=== PATIENT | female | born 1960 | race American Indian/Alaskan Native ===

== ENCOUNTER 2020-04-04 16:08 | Inpatient (IN) | payer BC ==
[2020-04-04] MEDS ORDERED: HEPARIN 1,000 UNIT/1 ML VIAL IV ONE (16:44)
[2020-04-04] MEDS ORDERED: SODIUM CHLORIDE 0.9% 1000 ML 1,000 ML IV ONE (16:44)
[2020-04-04] MEDS ORDERED: ASPIRIN 81 MG TAB CHEW PO ONE (16:44)
--- NOTE | 2020-04-04 16:53 | Emergency Department Report ---
ED Chest Pain HPI - General Chief Complaint: Chest Pain Stated Complaint: CHEST PAIN Time Seen by Provider: 04/04/20 16:36 Source: patient Mode of arrival: Ambulatory Limitations: No Limitations - History of Present Illness Initial Comments: Mrs. Brown is a 59-year-old female with history of hypertension, prediabetes mellitus, tobacco use, lung cancer in remission, brain aneurysm status post clipping and coiling who presents with sudden onset of chest pain 1 hour prior to arrival. Pain is sharp achy center of the chest radiating to both arms. She has mild shortness of breath. No previous history of heart disease. Pain is 5 out of 10 persistent. Extensive family history of heart disease including mother who underwent cardiac stenting and CABG. MD Complaint: chest pain -: Sudden, hour(s) (1) Onset: during rest, during exertion Pain Location: substernal Pain Radiation: RUE, LUE Severity: moderate Severity scale (0 -10): 5 Quality: aching, sharp Consistency: constant Improves With: nothing Worsens With: exertion re: dyspnea - Related Data Home Medications Medication Instructions Recorded Confirmed Last Taken Cyclobenzaprine [Flexeril] 10 mg PO TID PRN 10/06/15 10/06/15 10/06/15 Losartan [Cozaar] 50 mg PO QDAY 10/06/15 10/06/15 10/06/15 traMADoL [Ultram] 50 mg PO Q6HR PRN 10/06/15 10/06/15 10/06/15 Allergies Allergy/AdvReac Type Severity Reaction Status Date / Time No Known Allergies Allergy Verified 10/06/15 14:36 Heart Score - HEART Score History: Highly suspicious EKG: Significant ST-depression Age: 45-65 Risk factors: 1-2 risk factors Troponin: < normal limit HEART Score: 6 ED Review of Systems ROS: Stated complaint: CHEST PAIN Other details as noted in HPI Comment: All other systems reviewed and negative Constitutional: denies: fever, malaise Respiratory: shortness of breath. denies: cough Cardiovascular: chest pain ED Past Medical Hx - Past Medical History Previous Medical History?: Yes Hx Hypertension: Yes Additional medical history: LUNG/BREAST CA METS-CHEMO/RADIATION [id number] - Surgical History Past Surgical History?: Yes Additional Surgical History: brain surgery. aneursyms with clamps,LEFT BREAST LUMPECTOMY, PARTIAL LEFT LUNG REMOVED - Family History Family history: CAD/IN - Social History Smoking Status: Current Every Day Smoker Substance Use Type: Alcohol - Medications Home Medications: Home Medications Medication Instructions Recorded Confirmed Last Taken Type Cyclobenzaprine [Flexeril] 10 mg PO TID PRN 10/06/15 10/06/15 10/06/15 History Losartan [Cozaar] 50 mg PO QDAY 10/06/15 10/06/15 10/06/15 History traMADoL [Ultram] 50 mg PO Q6HR PRN 10/06/15 10/06/15 10/06/15 History ED Physical Exam - General Limitations: No Limitations General appearance: alert, in no apparent distress, other (Equal radial pulses) - Head Head exam: Present: atraumatic, normocephalic - Eye Eye exam: Present: normal appearance - ENT ENT exam: Present: mucous membranes moist - Neck Neck exam: Present: normal inspection, full ROM - Respiratory Respiratory exam: Present: normal lung sounds bilaterally. Absent: respiratory distress, wheezes, rales, rhonchi - Cardiovascular Cardiovascular Exam: Present: regular rate, normal rhythm, normal heart sounds. Absent: systolic murmur, diastolic murmur, rubs, gallop - GI/Abdominal GI/Abdominal exam: Present: soft, normal bowel sounds - Extremities Exam Extremities exam: Present: normal inspection - Back Exam Back exam: Present: normal inspection - Neurological Exam Neurological exam: Present: alert, oriented X3 - Psychiatric Psychiatric exam: Present: normal affect, normal mood - Skin Skin exam: Present: warm, dry, intact, normal color. Absent: rash ED Course Vital Signs 04/04/20 16:26 Temperature 98.5 F Pulse Rate 77 Respiratory 18 Rate Blood Pressure 203/101 O2 Sat by Pulse 100 Oximetry LARISSA score - Larissa Score Age > 65: (0) No Aspirin use within the Past 7 Days: (0) No 3 or more CAD Risk Factors: (1) Yes 2 or more Angina events in past 24 hrs: (1) Yes Known CAD with more than 50% Stenosis: (0) No Elevated Cardiac Markers: (0) No ST Deviation Greater than 0.5mm: (0) No LARISSA Score: 2 ED Medical Decision Making - EKG Data 04/04/20 16:50 EKG obtained 1620 NSR 70 bpm nl axis normal intervals ST elevation III AVF reciprocal depressions in anterior leads, EKG is changed from 10/2015 - Medical Decision Making I was present EKG which had concerning ST morphology in the inferior leads with reciprocal changes in the anterior leads. I immediately spoke with interventional list Dr. Davis who agreed that the patient needed to be taken emergently to the cardiac Radar [facility]ic. Code STEMI activated. Patient was treated with aspirin and heparin bolus prior to leaving the department. Critical care attestation.: If time is entered above; I have spent that time in minutes in the direct care of this critically ill patient, excluding procedure time. ED Disposition Clinical Impression: Acute ST elevation myocardial infarction (STEMI) of inferior wall Disposition: [id number] OP ADMIT IP TO THIS HOSP Is pt being admited?: Yes Does the pt Need Aspirin: No Condition: Stable
[2020-04-04] MEDS ORDERED: HEPARIN 10,000 UNITS/10 ML VIAL IV ONE (17:00)
[2020-04-04 17:06] LABS: Basophils % (Auto) 0.6 % (0.0-1.8); Eosinophils % (Auto) 0.8 % (0.0-4.3); Hematocrit 41.6 % (30.3-42.9); Lymphocytes # (Auto) 1.1 K/mm3 (1.2-5.4); Lymphocytes % (Auto) 19.2 % (13.4-35.0); Mean Corpuscular HGB Conc 34 % (30-34); Mean Corpuscular Volume 97 fl (79-97); Monocytes # (Auto) 0.3 K/mm3 (0.0-0.8); Monocytes % (Auto) 5.6 % (0.0-7.3); Platelet Count 250 K/mm3 (140-440); Red Blood Count 4.31 M/mm3 (3.65-5.03)
[2020-04-04] MEDS ORDERED: HEPARIN/NS 5000 UNIT/500ML 1,000 ML IR ONE (17:09)
[2020-04-04] MEDS ORDERED: VERAPAMIL 5 MG/2 ML INJ ONE (17:09)
[2020-04-04] MEDS ORDERED: NITROGLYCERIN SYRINGE 3 ML ONE (17:10)
--- NOTE | 2020-04-04 17:11 | XRay Report ---
CHEST 1 VIEW INDICATION / CLINICAL INFORMATION: chest pain. COMPARISON: None available. FINDINGS: SUPPORT DEVICES: None. HEART / MEDIASTINUM: No significant abnormality. LUNGS / PLEURA: No significant pulmonary or pleural abnormality. No pneumothorax. ADDITIONAL FINDINGS: No significant additional findings. IMPRESSION: 1. No acute findings. Signer Name: Rich Oneal MD Signed: 04/04/2020 5:07 PM Workstation Name: [id number]
--- NOTE | 2020-04-04 17:13 | History and Physical Report ---
History of Present Illness Chief complaint: My chest hurts History of present illness: 59 YO Female with HTN, [place], CAD, Lung/Breast Cancer S/P Chemo/Radiation Therapy, Nicotine Dependence, ETOH presents to ED for evaluation. Pt states that she has experienced sudden onset pain in her chest. Patient states that the pain began approximately 1 hour prior to arrival. Patient states that pain is 57/10, constant, crushing in nature, substernal, associated with shortness of breath, associated with diaphoresis. Patient transported to [facility] via private vehicle for further care and evaluation. Patient seen and evaluated in the emergency department. Lab and imaging studies reviewed. Patient underwent EKG which showed ST elevation consistent with ST elevation OH. Cardiology team consulted. Patient taken urgently to cardiac catheterization lab for surgical intervention. Patient admitted to ICU for further care due to increased risk of cardiac decompensation. Patient denies fever, chills, palpitations, productive cough, skin rash, recent ill contacts, known exposure to COVID-19. Advanced care planning conducted in ED. no prior admission for review. At the time of admission has been reconciled. Past History Past Medical History: acute [place], cancer, diabetes, hypertension, other (See HPI) Past Surgical History: Other ( brain surgery. aneursyms with clamps,LEFT BREAST LUMPECTOMY, PARTIAL LEFT LUNG REMOVED) Social history: , smoking Family history: diabetes, hypertension Medications and Allergies Allergies Allergy/AdvReac Type Severity Reaction Status Date / Time hydralazine Allergy Unknown Verified 04/04/20 18:18 morphine Allergy Unknown Verified 04/04/20 18:18 Home Medications Medication Instructions Recorded Confirmed Last Taken Type Cyclobenzaprine [Flexeril] 10 mg PO TID PRN 10/06/15 10/06/15 10/06/15 History Losartan [Cozaar] 50 mg PO QDAY 10/06/15 10/06/15 10/06/15 History traMADoL [Ultram] 50 mg PO Q6HR PRN 10/06/15 10/06/15 10/06/15 History Active Meds: Active Medications Sodium Chloride (Nacl 0.9% 1000 Ml) 1,000 mls @ 42 mls/hr IV ONCE ONE Stop: 04/05/20 16:32 Sodium Chloride (Sodium Chloride Flush Syringe 10 Ml) 10 ml IV BID ADALI Sodium Chloride (Sodium Chloride Flush Syringe 10 Ml) 10 ml IV PRN PRN PRN Reason: LINE FLUSH Review of Systems Constitutional: no weight loss, no weight gain, no fever, no chills Ears, nose, mouth and throat: no ear pain, no ear discharge, no nasal discharge Cardiovascular: chest pain, decreased exercise tolerance, no rapid/irregular heart beat, no edema, no syncope Respiratory: no cough, no cough with sputum, no hemoptysis, no shortness of breath Gastrointestinal: no nausea, no vomiting Genitourinary Female: no pelvic pain, no flank pain, no urinary frequency Rectal: no pain, no incontinence, no bleeding Musculoskeletal: no neck stiffness, no neck pain, no shooting arm pain, no arm numbness/tingling, no low back pain Integumentary: no rash, no pruritis, no redness, no sores, no wounds Neurological: no paralysis, no weakness, no parathesias, no numbness, no tingling, no seizures, no syncope Psychiatric: no anxiety, no memory loss, no change in sleep habits, no insomnia, no hypersomnia, no change in appetite, no hallucinations Endocrine: no cold intolerance, no heat intolerance, no polyphagia, no excessive thirst, no polyuria, no excessive sweating, no flushing Hematologic/Lymphatic: no easy bruising, no easy bleeding, no lymphadenopathy Allergic/Immunologic: no persistent infections, no anaphylaxis, no angioedema Exam - Constitutional Vitals: Temp Pulse Resp BP Pulse Ox 98.5 F 77 18 203/101 100 04/04/20 16:26 04/04/20 16:26 04/04/20 16:26 04/04/20 16:26 04/04/20 16:26 General appearance: Present: no acute distress, well-nourished - EENT Eyes: Present: PERRL ENT: hearing intact, clear oral mucosa - Neck Neck: Present: supple, normal ROM - Respiratory Respiratory effort: normal Respiratory: bilateral: CTA - Cardiovascular Heart Sounds: Present: S1 & S2. Absent: rub, click - Extremities Extremities: pulses symmetrical, No edema Peripheral Pulses: within normal limits - Abdominal General gastrointestinal: Present: soft, non-tender, non-distended, normal bowel sounds Female genitourinary: Present: normal - Integumentary Integumentary: Present: clear, warm, dry - Musculoskeletal Musculoskeletal: gait normal, strength equal bilaterally - Psychiatric Psychiatric: appropriate mood/affect, intact judgment & insight - Neurologic Neurologic: CNII-XII intact, moves all extremities HEART Score - HEART Score EKG: Significant ST-depression Age: 45-65 Risk factors: 1-2 risk factors Troponin: < normal limit Results - Labs CBC & Chem 7: 04/04/20 16:50 04/04/20 16:50 Labs: Abnormal lab results 04/04/20 Range/Units 16:50 MCH 33 H (28-32) pg Lymph # 1.1 L (1.2-5.4) K/mm3 Seg Neutrophils % 73.8 H (40.0-70.0) % Assessment and Plan - Patient Problems (1) Acute ST elevation myocardial infarction (STEMI) of inferior wall Current Visit: No Status: Acute Plan to address problem: Cardiology team consulted in ED, patient taken urgently to [facility] for cardiac intervention, lipid panel, statin therapy as clinically indicated, therapeutic anticoagulation with heparin drip. The high probability of a clinically significant, sudden or life threatening deterioration of the [cardiac, pulmonary, renal] system(s) required my full and direct attention, intervention and personal management. The aggregate critical care time was [95] minutes. This time is in addition to time spent performing reported procedures but includes the following: [x] Data Review and interpretation [x] Patient assessment and monitoring of vital signs [x] Documentation [x] Medication orders and management (2) Diastolic CHF Current Visit: Yes Status: Acute Qualifiers: Heart failure chronicity: acute Qualified Code(s): I50.31 - Acute diastolic (congestive) heart failure Plan to address problem: Strict I's/O, daily weight, monitor urine output every shift, supplemental oxygen, echocardiogram, afterload reduction, supportive care., Blood pressure control. (3) HTN (hypertension) Current Visit: Yes Status: Acute Qualifiers: Hypertension type: essential hypertension Qualified Code(s): I10 - Essential (primary) hypertension Plan to address problem: Monitor blood pressure every shift, continue prehospital antihypertensive therapy. (4) CAD (coronary artery disease) Current Visit: Yes Status: Acute Qualifiers: Associated angina: with stable angina Plan to address problem: Risk factor reduction therapy, lipid panel, statin therapy, (5) Nicotine dependence Current Visit: Yes Status: Acute Qualifiers: Nicotine product type: cigarettes Substance use status: in withdrawal Qualified Code(s): F17.213 - Nicotine dependence, cigarettes, with withdrawal Plan to address problem: Smoking cessation counseling, supportive care, +15 minutes. (6) DVT prophylaxis Current Visit: Yes Status: Acute Plan to address problem: SCD to bilateral lower extremities while in bed, continue heparin drip. (7) Lung cancer Current Visit: Yes Status: Acute Qualifiers: Lung location: unspecified part of lung Plan to address problem: Outpatient oncology follow-up, patient is currently in remission. (8) Advance care planning Current Visit: Yes Status: Acute Plan to address problem: Disease education conducted, patient is full code, patient knowledges understanding and agreement with care plan, +30 minutes.
[2020-04-04 17:16] LABS: INR 0.9 (0.87-1.13)
[2020-04-04 17:17] LABS: Partial Thromboplastin Time 26.7 Sec. (24.2-36.6)
[2020-04-04 17:22] LABS: Creatine Kinase MB 1.1 ng/mL (0.0-4.0)
[2020-04-04 17:23] LABS: BUN/Creatinine Ratio 17; Blood Urea Nitrogen 12 mg/dL (7-17); Calcium 9.4 mg/dL (8.4-10.2); Hemolysis Index 16
[2020-04-04] MEDS: fentaNYL 100 MCG/2 ML INJ ONE ×3 (17:30→17:48)
[2020-04-04] MEDS: LIDOCAINE (2%) 20 MG/1 ML VIAL 20 ML MDV INFILTRATI ONE ×3 (17:30→17:46)
[2020-04-04] MEDS: MIDAZOLAM 2 MG/2 ML INJ ONE ×3 (17:30→17:48)
[2020-04-04] MEDS: HEPARIN 10,000 UNITS/10 ML VIAL ONE ×2 (17:59→19:15)
[2020-04-04] MEDS ORDERED: ONDANSETRON 4 MG/2 ML INJ ONE (18:23)
[2020-04-04] MEDS ORDERED: NITROGLYCERIN DRIP 50 MG/250 ML BOTTLE ONE (18:41)
[2020-04-04] MEDS ORDERED: HEPARIN/NS 5000 UNIT/500ML 500 ML IR ONE (18:43)
[2020-04-04] MEDS: NITROGLYCERIN SYRINGE 3 ML ONE ×2 (18:51→18:58)
[2020-04-04] MEDS ORDERED: NIFEdipine XL 60 MG TAB PO ONE (18:57)
[2020-04-04] MEDS ORDERED: CLOPIDOGREL 300 MG TAB ONE (19:04)
[2020-04-04] MEDS ORDERED: ALUM-MAG HYDROXIDE-SIMETHICONE 200-200-20MG/5ML ORAL LIQD 30 ML ONE (19:04)
[2020-04-04] MEDS ORDERED: TIROFIBAN/NS 12,500 MCG/250 ML BAG IV ONE (19:04)
[2020-04-04] MEDS ORDERED: NITROGLYCERIN DRIP 50 MG/250 ML BOTTLE IV ONE (19:32)
--- NOTE | 2020-04-04 19:43 | Consultation ---
History of Present Illness Consult date: 04/04/20 Consult reason: chest pain History of present illness: The patient is a 59-year-old woman who presented to the hospital with several hours of chest pain. EKG was consistent with an acute inferior wall ST elevation myocardial infarction. Cardiac catheterization STEMI protocol was activated, and we found distal occlusion of the circumflex artery. Successful coronary angioplasty was performed after initial difficulty with transitioning a guidewire in the tortuous circumflex system. Serial 2.0-2.25 mm drug-eluting stents were deployed with excellent angiographic result. Left ventricular ejection fraction was 40 to 45% by left ventricular angiography. The patient is admitted to the CCU for post [facility] supportive care. Comorbidities include recent history of breast and lung cancer, chronic hypertension and a remote history of cerebral aneurysm clipping in 1986. Past History Past Medical History: acute [place], cancer, diabetes, hypertension Past Surgical History: Other ( brain surgery. aneursyms with clamps,LEFT BREAST LUMPECTOMY, PARTIAL LEFT LUNG REMOVED) Social history: , smoking Family history: diabetes, hypertension Medications and Allergies Allergies Allergy/AdvReac Type Severity Reaction Status Date / Time hydralazine Allergy Unknown Verified 04/04/20 18:18 morphine Allergy Unknown Verified 04/04/20 18:18 Home Medications Medication Instructions Recorded Confirmed Last Taken Type Cyclobenzaprine [Flexeril] 10 mg PO TID PRN 10/06/15 10/06/15 10/06/15 History Losartan [Cozaar] 50 mg PO QDAY 10/06/15 10/06/15 10/06/15 History traMADoL [Ultram] 50 mg PO Q6HR PRN 10/06/15 10/06/15 10/06/15 History Active Meds: Active Medications Aspirin (Ecotrin) 325 mg PO QDAY ADALI Clopidogrel Bisulfate (Plavix) 75 mg PO QDAY [facility] Sodium Chloride (Nacl 0.9% 1000 Ml) 1,000 mls @ 100 mls/hr IV DIRECT [facility] Stop: 04/05/20 07:44 Metoprolol Tartrate (Metoprolol) 50 mg PO BID [facility] Sodium Chloride (Sodium Chloride Flush Syringe 10 Ml) 10 ml IV BID ADALI Sodium Chloride (Sodium Chloride Flush Syringe 10 Ml) 10 ml IV PRN PRN PRN Reason: LINE FLUSH Review of Systems Cardiovascular: chest pain, shortness of breath, no orthopnea, no palpitations, no rapid/irregular heart beat, no edema, no syncope, no lightheadedness Physical Examination Vital Signs Temp Pulse Resp BP Pulse Ox 98.5 F 77 18 203/101 100 04/04/20 16:26 04/04/20 16:26 04/04/20 16:26 04/04/20 16:26 04/04/20 16:26 General appearance: no acute distress HEENT: Positive: PERRL Neck: Positive: neck supple Cardiac: Positive: Reg Rate and Rhythm Lungs: Positive: clear to auscultation Neuro: Positive: Grossly Intact Abdomen: Positive: Soft Female genitourinary: deferred Skin: Positive: Clear Extremities: Absent: edema Results 04/04/20 16:50 04/04/20 16:50 Cardiac Enzymes 04/04/20 Range/Units 16:50 CK-MB (CK-2) 1.1 (0.0-4.0) ng/mL Coagulation 04/04/20 Range/Units 16:50 PT 12.3 (12.2-14.9) Sec. INR 0.90 (0.87-1.13) APTT 26.7 (24.2-36.6) Sec. CBC 04/04/20 Range/Units 16:50 WBC 5.6 (4.5-11.0) K/mm3 RBC 4.31 (3.65-5.03) M/mm3 Hgb 14.0 (10.1-14.3) gm/dl Hct 41.6 (30.3-42.9) % Plt Count 250 (140-440) K/mm3 Lymph # 1.1 L (1.2-5.4) K/mm3 [place] # 0.3 (0.0-0.8) K/mm3 Eos # 0.0 (0.0-0.4) K/mm3 Baso # 0.0 (0.0-0.1) K/mm3 Comprehensive Metabolic Panel 04/04/20 Range/Units 16:50 Sodium 140 (137-145) mmol/L Potassium 4.0 (3.6-5.0) mmol/L Chloride 104.6 (98-107) mmol/L Carbon Dioxide 22 (22-30) mmol/L BUN 12 (7-17) mg/dL Creatinine 0.7 (0.7-1.2) mg/dL Glucose 174 H (65-100) mg/dL Calcium 9.4 (8.4-10.2) mg/dL EKG interpretations - Telemetry EKG Rhythm: Sinus Rhythm (With inferior STEMI) Assessment and Plan - Patient Problems (1) Acute ST elevation myocardial infarction (STEMI) of inferior wall Current Visit: No Status: Acute Plan to address problem: Status post cardiac catheterization with successful angioplasty and stenting of distal circumflex occlusion. Left ventricular ejection fraction 40 to 45%. There was moderate severity nonobstructive disease of the mid right coronary artery, recommended for conservative management. Patient is admitted to the CCU on supportive management and guideline directed medical therapy.
[2020-04-04] MEDS ORDERED: SODIUM CHLORIDE 0.9% 1000 ML 1,000 ML IV SCH (19:45)
--- NOTE | 2020-04-04 19:47 | Cardiac Catherization Report ---
CARDIAC CATHETERIZATION AND CORONARY ANGIOPLASTY REPORT. REASON FOR PROCEDURE: The patient is a 59-year-old woman who presented to the hospital with chest pain, ECG consistent with an acute inferior ST elevation myocardial infarction. Emergency cardiac catheterization protocol was activated. PROCEDURES: 1. Left heart catheterization. 2. Selective left and right coronary angiography. 3. Left ventricular angiography. 4. Coronary angioplasty and stenting of the circumflex artery. 5. Sedation time start 1743, end 1859. The laboratory miller was activated at 1640 and the procedure was begun promptly with 1743. Due to severe tortuosity and an acute bend at the ostium of the circumflex, wire transition into the circumflex was difficult, requiring many maneuvers including an [id number] balloon and an exchange of several guidewires. This difficult and tortuous anatomy resulted in a delay to balloon inflation. PROCEDURES: The patient was prepped and draped in a sterile fashion under emergency protocol. The right femoral artery was entered using the Seldinger technique followed by placement of a 6-Andorran sheath. Selective left and right coronary angiography was performed using #4 left and right Nuno catheters. The right Nuno was used for left ventricle angiography. The angiograms were reviewed. FINDINGS: The left main coronary artery contained mild distal narrowing. The left anterior descending artery and its diagonal branches were free of significant disease. A large ramus intermedius artery contained mild irregularities. The first obtuse marginal branch of the circumflex was a large vessel that was free of significant disease. The AV groove circumflex continued, and gave off another, medium sized mid obtuse marginal. Beyond the mid obtuse marginal, the circumflex was occluded in its distal segment. The right coronary artery was relatively small caliber, but dominant vessel. There was mild disease of the proximal segment. There was another, focal 50-60% stenosis of the mid segment. There was [id number] left ventricular systolic dysfunction with left ventricular ejection fraction 40-45%. CORONARY ANGIOPLASTY: After review of the angiograms, the distal occlusion of the circumflex was the likely infarct-related lesion. We commenced with coronary intervention. We selected an XB 3.5 guiding catheter and advanced to the left coronary ostium. As noted above, due to severe tortuosity and an acute bend at the origin of the circumflex, wire to transition to the distal vessel proved very challenging requiring multiple balloon and wire manipulations. Ultimately, we were successful in transitioning a ChoICE PT wire into the distal circumflex. Following that, balloon angioplasty was carried out to an occlusive lesion in the distal vessel leading to a small to medium sized terminal obtuse marginal. Following balloon angioplasty, there remained a severely irregular lesion, and this prompted a decision for stent deployment. We deployed serial 2.0-2.25 mm drug-eluting stents, covering the lesional segment. Following stenting, there was an excellent angiographic result at the treated site, 0 residual stenosis and spiritism of LARISSA 3 flow. The patient tolerated the procedure well and there were no complications. CONCLUSION: 1. Acute inferior wall ST elevation myocardial infarction. 2. 100% occlusion of the distal circumflex is the infarct-related lesion. 3. Successful primary angioplasty and stenting of the distal circumflex with excellent angiographic result after deployment of a 2.0-2.25 mm drug-eluting stents. 4. Coronary intervention was made difficult by the severe tortuosity and an acute bend leading into the circumflex, causing a delay in initial device delivery to the lesional segment. 5. Nonobstructive disease of the mid right coronary artery is recommended for risk factor modification and medical therapy. 6. Tccu-an-cabgwefr left ventricular dysfunction, ejection fraction 40-45%. JOB# [id number] ANSHU/NTS
[2020-04-04] MEDS ORDERED: TIROFIBAN/NS 12,500 MCG/250 ML BAG IV SCH (20:00)
[2020-04-04 20:52] LABS: Chol/HDL Ratio 3.81 %
[2020-04-04] MEDS ORDERED: LORazepam 2 MG/ML VIAL IV PRN (20:57)
[2020-04-04] MEDS: LOSARTAN 50 MG TAB PO SCH (21:13)
[2020-04-04] MEDS: PANTOPRAZOLE 40 MG TAB PO SCH (21:21)
[2020-04-04] MEDS: METOPROLOL TARTRATE 50 MG TAB PO SCH (21:23)
[2020-04-04] MEDS ORDERED: traMADol 50 MG TAB PO ONE (22:37)
--- NOTE | 2020-04-05 03:17 | XRay Report ---
CHEST 1 VIEW INDICATION / CLINICAL INFORMATION: post pci. Dyspnea. COMPARISON: None available. FINDINGS: SUPPORT DEVICES: None. HEART / MEDIASTINUM: Mild cardiomegaly. LUNGS / PLEURA: Patchy bibasilar airspace density may represent atelectasis. Signer Name: Joby Denson MD Signed: 04/05/2020 3:13 AM Workstation Name: [id number]
[2020-04-05 04:19] LABS: Basophils % (Auto) 0.5 % (0.0-1.8); Eosinophils % (Auto) 0.5 % (0.0-4.3); Hematocrit 37.5 % (30.3-42.9); Hemoglobin 12.7 gm/dl (10.1-14.3); Lymphocytes # (Auto) 1.3 K/mm3 (1.2-5.4); Lymphocytes % (Auto) 23.5 % (13.4-35.0); Mean Corpuscular HGB Conc 34 % (30-34); Mean Corpuscular Volume 97 fl (79-97); Monocytes # (Auto) 0.4 K/mm3 (0.0-0.8); Monocytes % (Auto) 6.9 % (0.0-7.3); Platelet Count 191 K/mm3 (140-440); Red Blood Count 3.89 M/mm3 (3.65-5.03); Red Cell Distribution Width 14.7 % (13.2-15.2)
[2020-04-05 04:46] LABS: Creatine Kinase MB 48.1 ng/mL (0.0-4.0)
[2020-04-05 04:47] LABS: Creatine Kinase MB 50.2 ng/mL (0.0-4.0)
[2020-04-05 04:49] LABS: Alanine Aminotransferase 11 units/L (7-56); Albumin 4.1 g/dL (3.9-5); BUN/Creatinine Ratio 13; Blood Urea Nitrogen 8 mg/dL (7-17); Calcium 8.5 mg/dL (8.4-10.2); Hemolysis Index 4
--- NOTE | 2020-04-05 08:25 | Consultation ---
History of Present Illness - Reason for Consult Consult date: 04/05/20 STEMI, post PCI Requesting physician: JALEN JANSEN - History of Present Illness 59 y/o female with multiple comorbidites including breast and lung CA admitted with several hours of chest pain. Per ED notes and Cards notes, EKG consistent with inferior CA and patient was taken to lab scientist. There, she underwent successful PCI of circumflex artery. She was transitioned to the ICU on nitro drip which was weaned off early and aggrostat. Currently sitting up on side of the bed, chest pain free. Past History Past Medical History: acute CA, cancer, diabetes, hypertension Past Surgical History: Other ( brain surgery. aneursyms with clamps,LEFT BREAST LUMPECTOMY, PARTIAL LEFT LUNG REMOVED) Social history: , smoking Family history: diabetes, hypertension Medications and Allergies Allergies Allergy/AdvReac Type Severity Reaction Status Date / Time hydralazine Allergy Unknown Verified 04/04/20 18:18 morphine Allergy Unknown Verified 04/04/20 18:18 Home Medications Medication Instructions Recorded Confirmed Last Taken Type Cyclobenzaprine [Flexeril] 10 mg PO TID PRN 10/06/15 04/05/20 10/06/15 History Losartan [Cozaar] 50 mg PO QDAY 10/06/15 04/04/20 04/04/20 History 50 traMADoL [Ultram] 50 mg PO Q6HR PRN 10/06/15 04/04/20 04/03/20 History 50 Active Meds: Active Medications Aspirin (Ecotrin) 325 mg PO QDAY ADALI Atorvastatin Calcium (Lipitor) 40 mg PO QHS ADALI Last Admin: 04/04/20 21:24 Dose: Not Given Documented by: Clopidogrel Bisulfate (Plavix) 75 mg PO QDAY ADALI Nitroglycerin/Dextrose (Tridil Drip 50mg/250ml) 50 mg in 250 mls @ 12 mls/hr IV TITR ONE; Protocol Stop: 04/05/20 16:21 Last Titration: 04/04/20 23:18 Dose: 0 mcg/min, 0 mls/hr Documented by: Tirofiban/Sodium Chloride (Aggrastat Drip (12.5 Mg/250 Ml)) 12,500 mcg in 250 mls @ 0 mls/hr IV DIRECT ADALI; Protocol Stop: 04/05/20 13:59 Lorazepam (Ativan) 2 mg IV Q1HR PRN PRN Reason: CIWA-Ar 8-15 Last Admin: 04/04/20 22:31 Dose: 2 mg Documented by: Losartan Potassium (Cozaar) 50 mg PO QDAY [facility] Last Admin: 04/04/20 21:13 Dose: Not Given Documented by: Metoprolol Tartrate (Metoprolol) 50 mg PO BID [facility] Last Admin: 04/04/20 21:23 Dose: Not Given Documented by: Pantoprazole Sodium (Protonix) 40 mg PO QDAY [facility] Last Admin: 04/04/20 21:21 Dose: Not Given Documented by: Sodium Chloride (Sodium Chloride Flush Syringe 10 Ml) 10 ml IV BID [facility] Last Admin: 04/04/20 22:31 Dose: 10 ml Documented by: Sodium Chloride (Sodium Chloride Flush Syringe 10 Ml) 10 ml IV PRN PRN PRN Reason: LINE FLUSH Review of Systems All systems: negative Exam - Constitutional Vitals: Temp Pulse Resp BP Pulse Ox 98.5 F 78 21 122/63 92 04/05/20 03:36 04/05/20 06:00 04/05/20 05:50 04/05/20 06:00 04/05/20 06:00 General appearance: Present: no acute distress, well-nourished - EENT Eyes: Present: PERRL, EOM intact ENT: hearing intact - Neck Neck: Present: supple, normal ROM - Respiratory Respiratory effort: normal Respiratory: bilateral: CTA - Cardiovascular Rhythm: regular Heart Sounds: Present: S1 & S2 - Extremities Extremities: no ischemia, pulses intact, pulses symmetrical - Abdominal General gastrointestinal: Present: soft, non-tender, normal bowel sounds Results - Labs CBC & Chem 7: 04/05/20 03:39 04/05/20 03:39 Labs: Abnormal lab results 04/04/20 04/04/20 04/04/20 Range/Units 16:50 16:50 20:06 MCH 33 H (28-32) pg Lymph # 1.1 L (1.2-5.4) K/mm3 Seg Neutrophils % 73.8 H (40.0-70.0) % Creatinine (0.7-1.2) mg/dL Glucose 174 H (65-100) mg/dL AST (5-40) units/L Total Creatine Kinase 517 H (30-135) units/L CK-MB (CK-2) 45.0 H (0.0-4.0) ng/mL CK-MB (CK-2) Rel Index 8.7 H (0-4) Troponin T 0.777 H* D (0.00-0.029) ng/mL 04/05/20 04/05/20 04/05/20 Range/Units 03:39 03:39 03:39 MCH 33 H (28-32) pg Lymph # (1.2-5.4) K/mm3 Seg Neutrophils % (40.0-70.0) % Creatinine 0.6 L (0.7-1.2) mg/dL Glucose 131 H (65-100) mg/dL AST 47 H (5-40) units/L Total Creatine Kinase 563 H 563 H (30-135) units/L CK-MB (CK-2) 48.1 H 50.2 H (0.0-4.0) ng/mL CK-MB (CK-2) Rel Index 8.5 H 8.9 H (0-4) Troponin T 0.967 H* 1.180 H* D (0.00-0.029) ng/mL - Imaging and Cardiology Chest x-ray: image reviewed Assessment and Plan 59 y/o female with STEMI 1. Follow up any new cardiology recs 2. Medications should consist of ASA, statin, BB and MADDI, likely along with plavix. 3. Lifestyle modifications 4. Should be able to transition to floor this am, after cards has seen.
[2020-04-05] MEDS: CLOPIDOGREL 75 MG TAB PO SCH (10:39)
[2020-04-05] MEDS: ASPIRIN EC 325 MG TAB PO SCH (10:39)
[2020-04-05] MEDS: LOSARTAN 50 MG TAB PO SCH (10:40)
[2020-04-05] MEDS: METOPROLOL TARTRATE 50 MG TAB PO SCH ×2 (10:41→23:09)
[2020-04-05] MEDS: PANTOPRAZOLE 40 MG TAB PO SCH (10:42)
--- NOTE | 2020-04-05 11:48 | Progress Note ---
Assessment and Plan Acute ST elevation myocardial infarction (STEMI) of inferior wall PCI of the distal circumflex occlusion. There was moderate severity nono bstructive disease of the mid right coronary artery, recommended for conservative management. LVEF 40 to 45%. Stressed the importance of compliance with medications including aspirin and plavix. After completion of aggrastat, patient can transfer to the telemetry floor. Subjective Date of service: 04/05/20 Interval history: Patient is resting in bed comfortably. No reports of chest pain. Objective Vital Signs Temp Pulse Resp BP BP Pulse Ox 04/05/20 10:41 79 119/76 04/05/20 10:40 81 119/76 04/05/20 10:00 95 04/05/20 09:30 71 14 116/66 96 04/05/20 09:00 74 14 112/61 97 04/05/20 08:30 82 18 123/77 04/05/20 08:00 89 14 123/77 95 04/05/20 07:30 75 21 134/71 94 04/05/20 07:00 71 19 140/67 95 04/05/20 06:30 78 20 129/68 94 04/05/20 06:00 78 122/63 92 02 05:50 95 H 21 131/68 93 04/05/20 05:40 76 17 122/63 92 02 05:30 75 18 122/63 91 0602 05:20 75 17 122/65 87 02 05:10 74 17 138/68 86 0602 05:00 73 18 138/68 90 0602 04:50 72 17 122/68 87 02 04:40 72 17 138/74 91 [id number] 04:30 73 17 138/74 93 [id number] 04:20 74 17 130/94 94 0220 04:10 72 19 110/77 95 04/05/20 04:00 85 17 110/77 93 0220 03:50 71 19 116/73 94 060220 03:40 79 17 95 02 03:36 98.5 F 02 03:30 80 13 116/68 96 04/05/20 03:21 79 24 116/68 93 02 03:10 73 19 94 0602 03:00 73 17 118/71 94 04/05/20 02:51 73 22 134/73 95 04/05/20 02:41 84 20 142/81 04/05/20 02:31 84 14 106/68 04/05/20 02:21 73 20 149/77 100 04/05/20 02:11 75 16 127/76 04/05/20 02:00 74 21 142/81 96 04/05/20 01:51 82 10 L 140/81 04/05/20 01:41 75 22 135/75 96 04/05/20 01:30 74 26 H 127/76 96 04/05/20 01:21 76 20 134/76 97 04/05/20 01:11 74 21 135/75 97 04/05/20 01:01 74 24 135/75 98 04/05/20 00:51 75 17 108/66 97 04/05/20 00:41 74 20 128/74 97 04/05/20 00:31 73 20 128/74 98 04/05/20 00:21 75 20 114/69 98 04/05/20 00:11 76 20 133/77 04/05/20 00:03 75 20 133/77 04/05/20 00:00 76 18 133/77 99 04/04/20 23:54 77 17 113/66 87 04/04/20 23:51 79 22 127/70 95 04/04/20 23:41 98.7 F 80 21 118/73 98 04/04/20 23:30 78 21 118/73 96 04/04/20 23:21 79 20 113/66 96 04/04/20 23:11 82 21 114/72 96 04/04/20 23:00 98.2 F 79 32 H 114/72 96 04/04/20 22:51 79 20 113/74 96 04/04/20 22:41 78 20 109/73 97 04/04/20 22:31 81 16 109/73 96 04/04/20 22:21 85 18 113/71 04/04/20 22:11 79 20 121/70 98 04/04/20 22:00 77 21 121/70 98 04/04/20 21:51 78 11 L 130/80 99 04/04/20 21:41 92 H 16 131/71 04/04/20 21:30 81 13 131/71 99 04/04/20 21:20 85 23 118/85 04/04/20 21:13 83 144/66 04/04/20 21:11 81 14 144/66 98 04/04/20 21:01 80 22 144/66 04/04/20 20:51 77 12 118/85 92 04/04/20 20:41 85 10 L 131/81 97 04/04/20 20:30 78 13 131/81 98 04/04/20 20:27 82 17 04/04/20 20:15 20 04/04/20 20:14 78 21 93 04/04/20 19:57 98.2 F 04/04/20 16:55 71 20 215/102 100 04/04/20 16:50 72 16 221/107 99 04/04/20 16:46 77 21 99 04/04/20 16:26 98.5 F 77 18 203/101 100 - Physical Examination General: No Apparent Distress HEENT: Positive: PERRL Neck: Positive: neck supple Cardiac: Positive: Reg Rate and Rhythm Neuro: Positive: Grossly Intact Incision: Cardiac Cath Site (right groin) Extremities: Absent: edema - Labs and Meds Cardiac Enzymes 04/04/20 04/04/20 04/05/20 Range/Units 16:50 20:06 03:39 AST (5-40) units/L CK-MB (CK-2) 1.1 45.0 H 48.1 H (0.0-4.0) ng/mL 04/05/20 Range/Units 03:39 AST 47 H (5-40) units/L CK-MB (CK-2) 50.2 H (0.0-4.0) ng/mL Coagulation 04/04/20 Range/Units 16:50 PT 12.3 (12.2-14.9) Sec. INR 0.90 (0.87-1.13) APTT 26.7 (24.2-36.6) Sec. Lipids 04/04/20 Range/Units 20:06 Triglycerides 109 (2-149) mg/dL Cholesterol 164 (50-199) mg/dL HDL Cholesterol 43 (40-59) mg/dL Cholesterol/HDL Ratio 3.81 % CBC 04/04/20 04/05/20 Range/Units 16:50 03:39 WBC 5.6 5.4 (4.5-11.0) K/mm3 RBC 4.31 3.89 (3.65-5.03) M/mm3 Hgb 14.0 12.7 (10.1-14.3) gm/dl Hct 41.6 37.5 (30.3-42.9) % Plt Count 250 191 (140-440) K/mm3 Lymph # 1.1 L 1.3 (1.2-5.4) K/mm3 [place] # 0.3 0.4 (0.0-0.8) K/mm3 Eos # 0.0 0.0 (0.0-0.4) K/mm3 Baso # 0.0 0.0 (0.0-0.1) K/mm3 Comprehensive Metabolic Panel 04/04/20 04/05/20 Range/Units 16:50 03:39 Sodium 140 140 (137-145) mmol/L Potassium 4.0 3.8 (3.6-5.0) mmol/L Chloride 104.6 103.2 (98-107) mmol/L Carbon Dioxide 22 22 (22-30) mmol/L BUN 12 8 (7-17) mg/dL Creatinine 0.7 0.6 L (0.7-1.2) mg/dL Glucose 174 H 131 H (65-100) mg/dL Calcium 9.4 8.5 (8.4-10.2) mg/dL AST 47 H (5-40) units/L ALT 11 (7-56) units/L Alkaline Phosphatase 73 (35-129) units/L Total Protein 6.6 (6.3-8.2) g/dL Albumin 4.1 (3.9-5) g/dL
--- NOTE | 2020-04-05 18:39 | Progress Note ---
Assessment and Plan Assessment and plan: --Acute ST elevation VA; Status post PCI to circumflex Dual antiplatelet therapy, beta-blockers, MADDI inhibitors Nitrates, statins, cardiology following On Aggrastat drip --Hypertension; moderate control Continue current antihypertensives, PRN medications --Dyslipidemia; statin, low-cholesterol diet --Ongoing tobacco use/smoking cessation Nicotine patch as needed --DVT prophylaxis; SCD --Full code status Monitor closely and adjust management as needed Patient is stable to be transferred out of ICU Director Of Medical Staff Services recommendations noted and appreciated Possible discharge in 1 to 2 days if stable History Interval history: I have seen and examined the patient at bedside in ICU this morning Patient's chart, medications and reports reviewed Patient feels slightly better denies chest pain or shortness of breath Alert awake oriented x3 Vital signs reviewed Hospitalist Physical - Constitutional Vitals: Temp Pulse Resp BP Pulse Ox 98.5 F 95 H 17 116/71 95 04/05/20 03:36 04/05/20 17:00 04/05/20 17:00 04/05/20 17:00 04/05/20 15:00 General appearance: Present: no acute distress, well-nourished - EENT Eyes: Present: PERRL, EOM intact - Neck Neck: Present: supple, normal ROM - Respiratory Respiratory effort: normal Respiratory: bilateral: diminished, negative: rales, rhonchi, wheezing - Cardiovascular Rhythm: regular Heart Sounds: Present: S1 & S2 - Extremities Extremities: no ischemia, No edema - Abdominal General gastrointestinal: soft, non-tender, non-distended, normal bowel sounds - Integumentary Integumentary: Present: clear, warm - Psychiatric Psychiatric: appropriate mood/affect, cooperative - Neurologic Neurologic: moves all extremities HEART Score - HEART Score EKG: Significant ST-depression Age: 45-65 Risk factors: 1-2 risk factors Troponin: Troponin T 0.967 ng/mL (0.00-0.029) H* 04/05/20 03:39 Troponin T 1.180 ng/mL (0.00-0.029) H* D 04/05/20 03:39 Troponin: < normal limit Results - Labs CBC & Chem 7: 04/05/20 03:39 04/05/20 03:39 Labs: Laboratory Last Values WBC 5.4 K/mm3 (4.5-11.0) 04/05/20 03:39 RBC 3.89 M/mm3 (3.65-5.03) 04/05/20 03:39 Hgb 12.7 gm/dl (10.1-14.3) 04/05/20 03:39 Hct 37.5 % (30.3-42.9) 04/05/20 03:39 MCV 97 fl (79-97) 04/05/20 03:39 MCH 33 pg (28-32) H 04/05/20 03:39 MCHC 34 % (30-34) 04/05/20 03:39 RDW 14.7 % (13.2-15.2) 04/05/20 03:39 Plt Count 191 K/mm3 (140-440) 04/05/20 03:39 Lymph % (Auto) 23.5 % (13.4-35.0) 04/05/20 03:39 [place] % (Auto) 6.9 % (0.0-7.3) 04/05/20 03:39 Eos % (Auto) 0.5 % (0.0-4.3) 04/05/20 03:39 Baso % (Auto) 0.5 % (0.0-1.8) 04/05/20 03:39 Lymph # 1.3 K/mm3 (1.2-5.4) 04/05/20 03:39 [place] # 0.4 K/mm3 (0.0-0.8) 04/05/20 03:39 Eos # 0.0 K/mm3 (0.0-0.4) 04/05/20 03:39 Baso # 0.0 K/mm3 (0.0-0.1) 04/05/20 03:39 Seg Neutrophils % 68.6 % (40.0-70.0) 04/05/20 03:39 Seg Neutrophils # 3.7 K/mm3 (1.8-7.7) 04/05/20 03:39 PT 12.3 Sec. (12.2-14.9) 04/04/20 16:50 INR 0.90 (0.87-1.13) 04/04/20 16:50 APTT 26.7 Sec. (24.2-36.6) 04/04/20 16:50 Sodium 140 mmol/L (137-145) 04/05/20 03:39 Potassium 3.8 mmol/L (3.6-5.0) 04/05/20 03:39 Chloride 103.2 mmol/L (98-107) 04/05/20 03:39 Carbon Dioxide 22 mmol/L (22-30) 04/05/20 03:39 Anion Gap 19 mmol/L 04/05/20 03:39 BUN 8 mg/dL (7-17) 04/05/20 03:39 Creatinine 0.6 mg/dL (0.7-1.2) L 04/05/20 03:39 Estimated GFR > 60 ml/min 04/05/20 03:39 BUN/Creatinine Ratio 13 % 04/05/20 03:39 Glucose 131 mg/dL (65-100) H 04/05/20 03:39 Calcium 8.5 mg/dL (8.4-10.2) 04/05/20 03:39 Total Bilirubin 0.30 mg/dL (0.1-1.2) 04/05/20 03:39 AST 47 units/L (5-40) H 04/05/20 03:39 ALT 11 units/L (7-56) 04/05/20 03:39 Alkaline Phosphatase 73 units/L (35-129) 04/05/20 03:39 Total Creatine Kinase 563 units/L (30-135) H 04/05/20 03:39 Total Creatine Kinase 563 units/L (30-135) H 04/05/20 03:39 CK-MB (CK-2) 48.1 ng/mL (0.0-4.0) H 04/05/20 03:39 CK-MB (CK-2) 50.2 ng/mL (0.0-4.0) H 04/05/20 03:39 CK-MB (CK-2) Rel Index 8.5 (0-4) H 04/05/20 03:39 CK-MB (CK-2) Rel Index 8.9 (0-4) H 04/05/20 03:39 Troponin T 0.967 ng/mL (0.00-0.029) H* 04/05/20 03:39 Troponin T 1.180 ng/mL (0.00-0.029) H* D 04/05/20 03:39 Total Protein 6.6 g/dL (6.3-8.2) 04/05/20 03:39 Albumin 4.1 g/dL (3.9-5) 04/05/20 03:39 Albumin/Globulin Ratio 1.6 % 04/05/20 03:39 Triglycerides 109 mg/dL (2-149) 04/04/20 20:06 Cholesterol 164 mg/dL (50-199) 04/04/20 20:06 LDL Cholesterol Direct 116 mg/dL (50-130) 04/04/20 20:06 HDL Cholesterol 43 mg/dL (40-59) 04/04/20 20:06 Cholesterol/HDL Ratio 3.81 % 04/04/20 20:06 Blood Type O POSITIVE 04/04/20 16:55 Antibody Screen Negative 04/04/20 16:55 - Diagnostic Impressions Diagnostic Impressions: Echocardiogram 04/04/20 19:38 Transthoracic Echocardiogram Indication: Acute VA BP: 122/63 HR: 78 Conclusions *Global left ventricular systolic function is normal. *The estimated ejection fraction is 50-55%. *Mild to moderate concentric left ventricular hypertrophy is observed. *There is trace of mitral regurgitation. *There is mild tricuspid regurgitation. Findings Left Ventricle: The left ventricular chamber size is normal. Mild to moderate concentric left ventricular hypertrophy is observed. Global left ventricular systolic function is normal. The estimated ejection fraction is 50-55%. Left Atrium: The left atrial chamber size is normal. Right Ventricle: The right ventricular cavity size is normal. The right ventricular global systolic function is normal. Right Atrium: The right atrial cavity size is normal. Aortic Valve: The aortic valve is trileaflet. The aortic valve leaflets are mildly thickened. There is trace of aortic regurgitation. There is no evidence of aortic stenosis. Mitral Valve: The mitral valve leaflets are mildly thickened. There is trace of mitral regurgitation. There is no evidence of mitral stenosis. Tricuspid Valve: There is mild tricuspid regurgitation. No pulmonary hypertension is noted. Pulmonic Valve: There is mild pulmonic regurgitation. Pericardium: There is no pericardial effusion. Aorta: There is no dilatation of the ascending aorta. There is no dilatation of the aortic root. Venous: The inferior vena cava appears normal in size. Measurements Chambers 2D Name Value Normal Range IVSd (2D) 1.01 cm (0.6 - 1.1) LVPWd (2D) 1.05 cm (0.6 - 1.1) LVIDd (2D) 4.56 cm (3.7 - 5.6) LVIDs (2D) 3.04 cm (2 - 3.8) LV FS (2D) 33.28 % - EF Teichholz (2D) 62.02 % - Ao root diameter (2D) 2.85 cm (2 - 3.7) Volumes/Mass Name Value Normal Range LA ESV SP 4CH (A/L) 21 ml - LA ESV SP 2CH (A/L) 34.37 ml - LA ESV BP (A/L) 27.41 ml - LA ESV BP (A/L) index 15.85 ml/m2 - LA ESV SP 4CH (MOD) 20.08 ml - LA ESV SP 2CH (MOD) 33.58 ml - LA ESV BP (MOD) 26.36 ml - LA ESV BP (MOD) index 15.24 ml/m2 - Diastolic/Systolic Function Name Value Normal Range MV E-wave Vmax 0.68 m/sec - MV deceleration time 238.37 msec - MV A-wave Vmax 0.89 m/sec - MV E:A ratio 0.76 ratio - Aortic Valve Name Value Normal Range AV Vmax 1.31 m/sec - AV VTI 21.56 cm - AV peak gradient 6.87 mmHg - AV mean gradient 3.57 mmHg - LVOT diameter 2.16 cm - LVOT Vmax 0.93 m/sec - LVOT VTI 18.05 cm - LVOT peak gradient 3.45 mmHg - LVOT mean gradient 1.92 mmHg - SV LVOT 66.05 ml - CHRISTIAN (continuity Vmax) 2.6 cm2 - CHRISTIAN (continuity VTI) 3.06 cm2 - Mitral Valve Name Value Normal Range MR Vmax 3.51 m/sec - Tricuspid Valve Name Value Normal Range TR Vmax 2.14 m/sec - TR peak gradient 18 mmHg - RAP 3 mmHg - RVSP 21 mmHg - Pulmonic Valve/Qp:Qs Name Value Normal Range PV Vmax 0.61 m/sec - PV peak gradient 1.49 mmHg - PV acceleration time 125.59 msec - [place]/IV: Voiding Method Toilet IV Catheter Type [Left Hand] INT / Saline Lock IV Catheter Type [Right INT / Saline Lock Antecubital] Active Medications - Current Medications Current Medications: Generic Name Dose Route Start Last Admin Trade Name Freq PRN Reason Stop Dose Admin Aspirin 325 mg 04/05/20 10:00 04/05/20 10:39 Ecotrin PO 325 mg QDAY ADALI Administration Atorvastatin Calcium 40 mg 04/04/20 22:00 04/04/20 21:24 Lipitor PO Not Given QHS ADALI Clopidogrel Bisulfate 75 mg 04/05/20 10:00 04/05/20 10:39 Plavix PO 75 mg QDAY ADALI Administration Isosorbide Mononitrate 30 mg 04/06/20 10:00 Imdur PO QDAY ADALI Lorazepam 2 mg 04/04/20 20:57 04/04/20 22:31 Ativan IV 2 mg Q1HR PRN Administration CIWA-Ar 8-15 Losartan Potassium 50 mg 04/04/20 20:00 04/05/20 10:40 Cozaar PO Not Given QDAY ADALI Metoprolol Tartrate 50 mg 04/04/20 22:00 04/05/20 10:41 Metoprolol PO Not Given BID ADALI Pantoprazole Sodium 40 mg 04/04/20 20:00 04/05/20 10:42 Protonix PO Not Given QDAY ADALI Sodium Chloride 10 ml 04/04/20 22:00 04/05/20 10:42 Sodium Chloride Flush Syringe 10 Ml IV 10 ml BID ADALI Administration Sodium Chloride 10 ml 04/04/20 17:12 Sodium Chloride Flush Syringe 10 Ml IV PRN PRN LINE FLUSH
[2020-04-05] MEDS ORDERED: METOPROLOL TARTRATE 50 MG TAB ONE (23:04)
[2020-04-06 04:38] LABS: Hematocrit 36.3 % (30.3-42.9); Hemoglobin 12.2 gm/dl (10.1-14.3)
[2020-04-06 07:56] VITALS: BP 139/66
[2020-04-06] MEDS: PANTOPRAZOLE 40 MG TAB PO SCH (09:30)
[2020-04-06] MEDS: CLOPIDOGREL 75 MG TAB PO SCH (09:30)
[2020-04-06] MEDS: LOSARTAN 50 MG TAB PO SCH (09:31)
[2020-04-06] MEDS: METOPROLOL TARTRATE 50 MG TAB PO SCH (09:31)
[2020-04-06] MEDS: ASPIRIN EC 325 MG TAB PO SCH (09:31)
[2020-04-06] MEDS ORDERED: NICOTINE 14 MG/24 HR PATCH TD SCH (10:00)
--- NOTE | 2020-04-06 10:14 | Progress Note ---
Assessment and Plan Acute ST elevation myocardial infarction (STEMI) of inferior wall PCI of the distal circumflex occlusion. There was moderate severity nono bstructive disease of the mid right coronary artery, recommended for conservative management. LVEF 40 to 45%. LVEF 50-55% by echocardiogram Continue guideline directed medical therapy for coronary artery disease, including DAPT with plavix and aspirin, without interruption. Stable cardiac caba for discharge. Patient will follow up in our office within 1 week. Subjective Date of service: 04/06/20 Interval history: Patient is resting in bed comfortably. She denies chest pain. Objective Vital Signs Temp Pulse Resp BP Pulse Ox 04/06/20 10:00 68 04/06/20 09:31 81 139/66 04/06/20 07:42 98.3 F 81 20 139/66 97 04/06/20 04:04 98.5 F 68 18 148/69 98 04/06/20 03:15 65 04/06/20 00:24 68 04/05/20 23:08 98.1 F 75 18 144/68 96 04/05/20 22:00 96 04/05/20 20:40 98.1 F 93 H 18 125/90 97 04/05/20 20:00 98.1 F 04/05/20 19:00 85 15 134/72 04/05/20 18:00 111 H 25 H 142/88 89 04/05/20 17:00 95 H 17 116/71 04/05/20 16:00 68 17 103/64 04/05/20 15:00 101 H 103/64 95 04/05/20 14:00 68 103/64 100 04/05/20 13:00 85 110/64 95 04/05/20 12:30 75 140/118 98 04/05/20 12:00 82 109/58 93 04/05/20 11:30 76 140/118 100 04/05/20 11:00 70 128/74 04/05/20 10:41 79 119/76 04/05/20 10:40 81 119/76 04/05/20 10:30 82 119/76 94 - Physical Examination General: No Apparent Distress HEENT: Positive: PERRL Neck: Positive: neck supple Cardiac: Positive: Reg Rate and Rhythm Lungs: Positive: Decreased Breath Sounds Neuro: Positive: Grossly Intact Abdomen: Positive: Soft Incision: Cardiac Cath Site (right groin) Extremities: Absent: edema - Labs and Meds CBC 04/06/20 Range/Units 03:51 Hgb 12.2 (10.1-14.3) gm/dl Hct 36.3 (30.3-42.9) % Plt Count 191 (140-440) K/mm3
--- NOTE | 2020-04-06 11:59 | Progress Note ---
Assessment and Plan 59 y/o female with STEMI 1. Stable pulm status 2. Will sign off. Call if questions. Subjective Date of service: 04/06/20 Interval history: No acute events. Successful transfer out of the unit. Stable pulm status. Objective - Constitutional Vitals: Vital Signs - 12hr 04/06/20 04/06/20 04/06/20 00:24 03:15 04:04 Temperature 98.5 F Pulse Rate 68 65 68 Respiratory 18 Rate Blood Pressure 148/69 O2 Sat by Pulse 98 Oximetry 04/06/20 04/06/20 04/06/20 07:42 09:31 10:00 Temperature 98.3 F Pulse Rate 81 81 68 Respiratory 20 Rate Blood Pressure 139/66 139/66 O2 Sat by Pulse 97 Oximetry - Labs CBC & Chem 7: 04/06/20 03:51 04/05/20 03:39 Medications & Allergies - Medications Allergies/Adverse Reactions: Allergies hydralazine Allergy (Verified 04/04/20 18:18) Unknown CHANGE IN MENTAL STATUS morphine Allergy (Verified 04/04/20 18:18) Unknown CHANGE IN MENTAL STATUS Home Medications: Home Medications Medication Instructions Recorded Confirmed Last Taken Type Cyclobenzaprine [Flexeril] 10 mg PO TID PRN 10/06/15 04/05/20 10/06/15 History Losartan [Cozaar] 50 mg PO QDAY 10/06/15 04/04/20 04/04/20 History 50 traMADoL [Ultram] 50 mg PO Q6HR PRN 10/06/15 04/04/20 04/03/20 History 50 Olmesartan (Nf) 20 mg PO DAILY 04/06/20 04/06/20 Unknown History atenoloL [Tenormin] 25 mg PO DAILY 04/06/20 04/06/20 Unknown History Active Medications: Generic Name Dose Route Start Last Admin Trade Name Freq PRN Reason Stop Dose Admin Aspirin 325 mg 04/05/20 10:00 04/06/20 09:31 Ecotrin PO 325 mg QDAY ADALI Administration Atorvastatin Calcium 40 mg 04/04/20 22:00 04/05/20 23:09 Lipitor PO 40 mg QHS ADALI Administration Clopidogrel Bisulfate 75 mg 04/05/20 10:00 04/06/20 09:30 Plavix PO 75 mg QDAY ADALI Administration Isosorbide Mononitrate 30 mg 04/06/20 10:00 04/06/20 09:31 Imdur PO 30 mg QDAY ADALI Administration Lorazepam 2 mg 04/04/20 20:57 04/04/20 22:31 Ativan IV 2 mg Q1HR PRN Administration CIWA-Ar 8-15 Losartan Potassium 50 mg 04/04/20 20:00 04/06/20 09:31 Cozaar PO 50 mg QDAY ADALI Administration Metoprolol Tartrate 50 mg 04/04/20 22:00 04/06/20 09:31 Metoprolol PO 50 mg BID ADALI Administration Nicotine 14 mg 04/06/20 10:00 04/06/20 09:31 Habitrol TD 14 mg QDAY ADALI Administration Pantoprazole Sodium 40 mg 04/04/20 20:00 04/06/20 09:30 Protonix PO 40 mg QDAY ADALI Administration Sodium Chloride 10 ml 04/04/20 22:00 04/06/20 09:32 Sodium Chloride Flush Syringe 10 Ml IV 10 ml BID ADALI Administration Sodium Chloride 10 ml 04/04/20 17:12 Sodium Chloride Flush Syringe 10 Ml IV PRN PRN LINE FLUSH HEART Score - HEART Score EKG: Significant ST-depression Age: 45-65 Risk factors: 1-2 risk factors Troponin: Troponin T 0.967 ng/mL (0.00-0.029) H* 04/05/20 03:39 Troponin T 1.180 ng/mL (0.00-0.029) H* D 04/05/20 03:39 Troponin: < normal limit
--- NOTE | 2020-04-06 13:52 | Discharge Summary ---
Providers - Providers Date of Admission: 04/04/20 17:12 Date of discharge: 04/06/20 Attending physician: FLORA LEONE 04/04/20 Consult to Cardiac Rehabilitation [CONS] Routine Reason For Exam: post pci 04/04/20 16:47 Consult to Physician [CONS] Stat Comment: Consulting Provider: JALEN JANSEN Physician Instructions: Reason For Exam: STEMI 04/04/20 19:03 Consult to Physician [CONS] Routine Comment: nurse Alisa davis w/Dr. Kline/ hiral Consulting Provider: SUELLEN KLINE Physician Instructions: Reason For Exam: critical care Primary care physician: [facility], [place] Hospitalization Reason for admission: ST elevation NV/chest pain Condition: Stable Pertinent studies: Echo; EF 50 to 55%, mild to moderate LVH Chest x-ray; no acute findings Procedures: Heart cath; coronary angioplasty and stenting of circumflex artery[100% occluded] EF 40 to 45% Hospital course: 59-year-old female patient with significant past medical history of coronary artery disease cancer diabetes mellitus hypertension ongoing tobacco use was admitted with ST elevation NV,Patient was evaluated by cardiology and per STEMI protocol, had stat cardiac cath with successful angioplasty of the circumflex and serial CHASE stents placement.Patient's medications were optimized Patient symptoms significantly and gradually improved Smoking cessation counseling done advised nicotine patch as needed Today patient is comfortable no new complaints vital signs stable Cleared by cardiology for discharge and follow-up per schedule Patient is hemodynamically and clinically stable at discharge Discharge diagnosis; --Acute ST elevation NV; Status post PCI to circumflex, EF 40 to 45% Continue dual antiplatelet therapy, beta-blockers, MADDI inhibitors Nitrates, statins, follow-up cardiology post discharge per schedule --Coronary artery disease status post PCI to circumflex. --Hypertension; moderate control Advised to continue antihypertensives, --Dyslipidemia; statin, low-cholesterol diet --Ongoing tobacco use/smoking cessation counseling done Advised nicotine patch as needed --DVT prophylaxis; SCD --Full code status Cleared by cardiology Stable at discharge Patient strongly advised to comply with medications diet follow-up visits smoking cessation Patient verbalized understanding Patient is hemodynamically and clinically stable at discharge Disposition: TO HOME OR SELFCARE Time spent for discharge: 32 min Core Measure Documentation - Palliative Care Palliative Care/ Comfort Measures: Not Applicable - Core Measures Any of the following diagnoses?: acute NV - Acute NV Discharge Requirements Aspirin at discharge: Yes MADDI/ARB for LVSD if EF <40%: Yes Beta cruz at discharge: Yes Statin for LDL = or >100 mg/dl on DC: Yes Exam - Constitutional Vitals: Temp Pulse Resp BP Pulse Ox 98.3 F 68 20 139/66 100 04/06/20 07:42 04/06/20 10:00 04/06/20 07:42 04/06/20 09:31 04/06/20 12:18 General appearance: Present: no acute distress, well-nourished - EENT Eyes: Present: PERRL, EOM intact - Neck Neck: Present: supple, normal ROM - Respiratory Respiratory effort: normal Respiratory: bilateral: diminished, negative: rales, rhonchi, wheezing - Cardiovascular Rhythm: regular Heart Sounds: Present: S1 & S2 - Extremities Extremities: no ischemia, No edema - Abdominal General gastrointestinal: Present: soft, non-tender, non-distended, normal bowel sounds - Integumentary Integumentary: Present: clear, warm - Musculoskeletal Musculoskeletal: strength equal bilaterally - Psychiatric Psychiatric: appropriate mood/affect - Neurologic Neurologic: CNII-XII intact, moves all extremities Plan Activity: advance as tolerated Diet: other (Cardiac diet) Special Instructions: smoking cessation Additional Instructions: Advised smoking cessation and nicotine patch as needed. Advised to comply with medications, diet, follow-up visits. If you have recurrent episodes of chest pain or shortness of breath, contact MD, or go to emergency room. Advised 1 week work excuse,April 07- check with cardiology for further work excuse instructions . Follow up with: TREMAINE NUNES MD [Primary Care Provider] - 7 Days JALEN JANSEN MD [Staff Physician] - 7 Days Forms: Work/School Release Form Prescriptions: Losartan [Cozaar] 50 mg PO QDAY #30 tablet Aspirin EC [Ecotrin] 325 mg PO QDAY #30 tablet Nicotine [Habitrol] 14 mg TD QDAY #30 patch ISOSORBIDE MONOnitrate [Imdur ER] 30 mg PO QDAY #30 tablet AtorvaSTATin [Lipitor] 40 mg PO QHS #30 tablet Metoprolol [Lopressor TAB] 50 mg PO BID #60 tablet Clopidogrel [Plavix] 75 mg PO QDAY #30 tablet Pantoprazole [Protonix TAB] 40 mg PO QDAY #14 tablet
== END 2020-04-06 15:15 | disposition home or self-care (01) | DRG 246 ==
LOC: ED 16:08 → CC1 17:12 → 4A 04-05 21:19
PROVIDERS: ADMIT Internal Medicine; ATTEND Internal Medicine
PROC: 4A023N7 Measurement of Cardiac Sampling and Pressure, Left Heart, Percutaneous Approach (ICD-10-PCS; principal; 2020-04-04)
PROC: 027034Z Dilation of Coronary Artery, One Artery with Drug-eluting Intraluminal Device, Percutaneous Approach (ICD-10-PCS; 2020-04-04)
PROC: B2111ZZ Fluoroscopy of Multiple Coronary Arteries using Low Osmolar Contrast (ICD-10-PCS; 2020-04-04)
PROC: B2151ZZ Fluoroscopy of Left Heart using Low Osmolar Contrast (ICD-10-PCS; 2020-04-04)
DX: I21.19 ST elevation (STEMI) myocardial infarction involving other coronary artery of inferior wall (principal); I50.31 Acute diastolic (congestive) heart failure; C34.90 Malignant neoplasm of unspecified part of unspecified bronchus or lung; F17.213 Nicotine dependence, cigarettes, with withdrawal; I11.0 Hypertensive heart disease with heart failure; I67.1 Cerebral aneurysm, nonruptured; F10.20 Alcohol dependence, uncomplicated; Y90.9 Presence of alcohol in blood, level not specified; I25.10 Atherosclerotic heart disease of native coronary artery without angina pectoris; E78.5 Hyperlipidemia, unspecified; R73.03 Prediabetes; Z71.6 Tobacco abuse counseling; Z92.21 Personal history of antineoplastic chemotherapy; Z92.3 Personal history of irradiation; Z82.49 Family history of ischemic heart disease and other diseases of the circulatory system; I25.2 Old myocardial infarction; Z83.3 Family history of diabetes mellitus; Z88.8 Allergy status to other drugs, medicaments and biological substances; Z88.6 Allergy status to analgesic agent
CPT/HCPCS: 36415; 71045; 80048; 80053; 80061; 82550; 82553; 84484; 85014; 85018; 85025; 85049; 85347; 85610; 85730; 86850; 86900; 86901; 92941; 93005; 93306; 93458; 99406; G0378; A9270-GY; C1725; C1760; C1769; C1874; C1887; C1894; C9606; J1644; J2060; J2250; J2405; J3010; J3246; J7030; Q9967